=== PATIENT | male | born 1990 | race Caucasian/White ===

== ENCOUNTER → 2019-01-17 | Outpatient (CLI) | payer OTHER ==
[2014-11-09 21:27] VITALS: BP 148/91
--- NOTE | 2019-01-18 12:57 | SLEEP ---
DATE OF STUDY: 01/18/2019 HOME SLEEP STUDY REFERRING PHYSICIAN: Flip Gutiérrez MD The patient is a 28-year-old who weighs 300 pounds with a BMI of 38.5. The patient's Ranson score was 12. The patient underwent home sleep study performed by [facility]. The total recording time was 172 minutes. During the night of the study, the patient had 212 mixed apneas, 6 obstructive apneas, no central apneas and no hypopneas. The patient's apnea hypopnea index was 75.9 per hour. Nocturnal oximetry study revealed an average oxygen saturation of 80% with lowest of 45%. 154 minutes were spent in oxygen saturation less than 90%, another 109 minutes with saturation less than 85%, 62 minutes with saturation less than 80% and 21 minutes with saturation of less than 70%. Mean heart rate 77 beats per minute. IMPRESSION: 1. Severe sleep apnea-hypopnea syndrome at an AHI of 75.9 per hour. 2. Severe nocturnal hypoxia. RECOMMENDATIONS: 1. The patient should return for in-lab CPAP titration study due to the severity of sleep apnea and nocturnal hypoxia. 2. Once the patient is optimally treated, then follow up in 4-6 weeks to assess compliance with treatment and to document clinical improvement. 3. Weight loss is strongly advised. 4. Avoid [employer] depressants. 5. Cautioned regarding driving until symptoms of sleep apnea resolve with the above recommendations. DERIKC BARRERA MD DR: TONNY/jason JOB#: [id number] / [id number] FLIP Copeland MD
== END | disposition home or self-care (01) ==
LOC: RT 07:52
PROVIDERS: ATTEND Family Medicine
DX: G47.33 Obstructive sleep apnea (adult) (pediatric) (principal); G47.34 Idiopathic sleep related nonobstructive alveolar hypoventilation
CPT/HCPCS: G0399